=== PATIENT | female | born 1975 | race Caucasian/White ===

== ENCOUNTER 2017-01-22 13:42 | Emergency (ER) | payer OTHER ==
[2017-01-22 13:58] VITALS: BP 127/78
--- NOTE | 2017-01-22 14:23 | UC ---
Eye Complaint HPI - HPI Summary HPI Summary: This is a 41 yo female with hypothyroidism and anxiety who presents with c/o R eye drainage and itching, starting this am. No associated rhinorrhea, ST, fever , ear complaints or other acute symptoms. She works with medically frail individuals in a long-term. No sick contacts. - History of Current Complaint Chief Complaint: UCEye Stated Complaint: EYE COMPLAINT Hx Last Menstrual Period: less than one month - Allergies/Home Medications Allergies/Adverse Reactions: Allergies Allergy/AdvReac Type Severity Reaction Status Date / Time environmental Allergy Eyes Uncoded 01/22/17 13:58 Itchy/Swollen/Red/Watery Home Medications: Home Medications Cholecalciferol [Vitamin D3] 1,000 unit PO DAILY 01/22/17 [History Confirmed 01/01] Cyanocobalamin TAB* [Vitamin B12 TAB*] 500 mcg PO DAILY 01/22/17 [History Confirmed 01/22/17] Multivitamins/Minerals TAB* [Thera M Plus TAB*] 1 tab PO DAILY 01/22/17 [ History Confirmed 01/22/17] buPROPion TAB* [Wellbutrin TAB*] 75 mg PO DAILY 01/22/17 [History Confirmed 01/01] PMH/Surg Hx/FS Hx/Imm Hx Previously Healthy: No - hypothyroidism, anxiety - Surgical History Surgical History: Yes Surgery Procedure, Year, and Place: Cholecystectomy, 2010, [facility]; gastric bypass 2014 [facility]. Tubal Ligation, 2004, [facility]. D+C, 2000, [facility] - Family History Known Family History: Positive: None - Social History Alcohol Use: Occasionally Substance Use Type: None Smoking Status (MU): Never Smoked Tobacco Review of Systems Constitutional: Negative Skin: Negative Eyes: Drainage ENT: Negative Respiratory: Negative Cardiovascular: Negative Gastrointestinal: Negative Genitourinary: Negative Motor: Negative Neurovascular: Negative Musculoskeletal: Negative Neurological: Negative Psychological: Negative All Other Systems Reviewed And Are Negative: Yes Physical Exam Triage Information Reviewed: Yes Appearance: Well-Appearing Vital Signs: Initial Vital Signs Temp 98.9 F 01/22/17 13:51 Pulse 71 01/22/17 13:51 Resp 12 01/22/17 13:51 BP 127/78 01/22/17 13:51 Vital Signs Reviewed: Yes Eyes: Positive: Conjunctiva Inflamed - mildly. Negative: Discharge ENT: Positive: TM dull Neck: Positive: Supple, Nontender, No Lymphadenopathy Respiratory: Positive: Chest non-tender, Lungs clear. Negative: Crackles, Rhonchi, Stridor, Wheezing Cardiovascular: Positive: RRR, No Murmur Abdomen Description: Positive: Nontender Eye Complaint Course/Dx - Course Course Of Treatment: This is a 41 yo female with c/o R eye drainage and itching starting this am. Conjunctiva mildly injected on exam. Because of close contact with medically frail individuals will treat empirically for bacterial conjunctivitis - Differential Dx/Diagnosis Differential Diagnosis/HQI/PQRI: Conjunctivitis, Foreign Body, Uveitis Provider Diagnoses: 1. Conjunctivitis Discharge - Discharge Plan Condition: Stable Disposition: HOME Prescriptions: Sulfacetamide 10 % OPTH.BRIAN* [Sulamyd 10% Opth*] 1 drop RIGHT EYE Q4H #1 btl Patient Education Materials: Conjunctivitis (ED) Referrals: Emilee Bailey MD [Primary Care Provider] - Additional Instructions: Activity: As tolerated, avoid close contacts for 24 hrs Instructions: 1. Please use antibiotic drops as directed, you can use in the other eye if you begin to develop symptoms there as well
== END 2017-01-22 14:28 | disposition home or self-care (01) ==
LOC: UCCORT 13:42
DX: H10.31 Unspecified acute conjunctivitis, right eye (principal); E03.9 Hypothyroidism, unspecified; F41.9 Anxiety disorder, unspecified; Z90.49 Acquired absence of other specified parts of digestive tract; Z98.84 Bariatric surgery status
CPT/HCPCS: 99202; G0463

== ENCOUNTER 2017-09-14 15:25 | Emergency (ER) | payer OTHER ==
[2017-09-14 15:56] VITALS: BP 123/71
--- NOTE | 2017-09-14 16:40 | UC ---
Hand/Wrist HPI - HPI Summary HPI Summary: Pt c/o right hand pain s/p falling today with right hand in a fist. - History Of Current Complaint Chief Complaint: UCUpperExtremity Stated Complaint: RT HAND INJURY Time Seen by Provider: 09/14/17 16:16 Hx Obtained From: Patient Hx Last Menstrual Period: MIDJUL 2017 ?: No Onset/Duration: Sudden Onset Severity Initially: Moderate Severity Currently: Moderate Pain Intensity: 8 Character Of Pain: Dull, Aching, Throbbing Aggravating Factor(s): Movement, Lifting, Flexion, Extension Alleviating Factor(s): Rest, Ice Associated Signs And Symptoms: Positive: Swelling, Bruising Related History: Dominant Hand Right - Risk Factors Compartment Syndrome Risk Factors: Pain - Allergies/Home Medications Allergies/Adverse Reactions: Allergies Allergy/AdvReac Type Severity Reaction Status Date / Time environmental Allergy Eyes Uncoded 09/14/17 15:49 Itchy/Swollen/Red/Watery Home Medications: Home Medications Levothyroxine TAB* [Synthroid TAB*] 125 mcg PO DAILY 09/14/17 [History Confirmed 09/14/17] PMH/Surg Hx/FS Hx/Imm Hx Previously Healthy: Yes - Surgical History Surgical History: Yes Surgery Procedure, Year, and Place: Cholecystectomy, 2010, [facility]; gastric bypass 2014 [facility]. Tubal Ligation, 2004, [facility]. D+C, 2000, [facility] - Family History Known Family History: Positive: Cardiac Disease - Social History Occupation: Employed Full-time Lives: With Family Alcohol Use: Occasionally Substance Use Type: None Smoking Status (MU): Never Smoked Tobacco Have You Smoked in the Last Year: No Review of Systems Constitutional: Negative Skin: Bruising Eyes: Negative ENT: Negative Respiratory: Negative Cardiovascular: Negative Gastrointestinal: Negative Genitourinary: Negative Motor: Decreased ROM - right hand, Weakness - righ thand Neurovascular: Negative Musculoskeletal: Arthralgia - right hanhd, Decreased ROM - right hand, Edema, Myalgia Neurological: Negative Psychological: Negative Is Patient Immunocompromised?: No All Other Systems Reviewed And Are Negative: Yes Physical Exam Triage Information Reviewed: Yes Appearance: Pain Distress Vital Signs: Initial Vital Signs Temp 97.7 F 09/14/17 15:51 Pulse 74 09/14/17 15:51 Resp 16 09/14/17 15:51 BP 123/71 09/14/17 15:51 Pulse Ox 98 09/14/17 15:51 Vital Signs Reviewed: Yes Eye Exam: Normal ENT: Positive: Hearing grossly normal Respiratory: Positive: No respiratory distress Musculoskeletal Exam: Other Musculoskeletal: Positive: Strength Limited @, ROM Limited @, Edema @ - right hand distal 4th and 5th metacarpals Neurological Exam: Normal Psychological Exam: Normal Skin Exam: Other - bruising Diagnostics - Radiology No standard instances Radiology Interpretation Completed By: Radiologist - IMPRESSION: FRACTURE FIFTH METACARPAL HEAD WITH MILD ANGULAR DEFORMITY. Hand/Wrist Course/Dx - Differential Dx/Diagnosis Differential Diagnosis/HQI/PQRI: Fracture - IMPRESSION: FRACTURE FIFTH METACARPAL HEAD WITH MILD ANGULAR DEFORMITY. Provider Diagnoses: IMPRESSION: FRACTURE FIFTH METACARPAL HEAD WITH MILD ANGULAR DEFORMITY. Discharge - Sign-Out/Discharge Documenting (check all that apply): Discharge - Discharge Plan Condition: Stable Disposition: HOME Patient Education Materials: Hand Fracture (ED), R.I.C.E. Treatment (ED) Forms: *Work Release Referrals: Emilee Bailey MD [Primary Care Provider] - Delvin Yuan MD [Medical Doctor] - As Soon As Possible Steph Schumacher MD [Medical Doctor] - As Soon As Possible Additional Instructions: IMPRESSION: FRACTURE FIFTH METACARPAL HEAD WITH MILD ANGULAR DEFORMITY. - Billing Disposition and Condition Condition: STABLE Disposition: HOME
--- NOTE | 2017-09-14 16:46 | RAD ---
INDICATION: Left fifth metacarpal pain after fall COMPARISON: None TECHNIQUE: AP, lateral, and oblique views were obtained. FINDINGS: There is a mildly angulated fracture the distal fifth metacarpal. No other fractures are evident. There is associated soft tissue swelling. The bony structures, joint spaces, and soft tissues otherwise normal. IMPRESSION: FRACTURE FIFTH METACARPAL HEAD WITH MILD ANGULAR DEFORMITY.
== END 2017-09-14 16:57 | disposition home or self-care (01) ==
LOC: UCCORT 15:25
DX: S62.396A Other fracture of fifth metacarpal bone, right hand, initial encounter for closed fracture (principal); W19.XXXA Unspecified fall, initial encounter; Y92.9 Unspecified place or not applicable
CPT/HCPCS: 99211; G0463